=== PATIENT | male | born 1935 | race Caucasian/White ===

== ENCOUNTER → 2020-02-16 | Outpatient (CLI) | payer OTHER ==
[~2020-02-16] MED LIST: ASPI325 PO; ASPI81CH; ASPI81CH PO; Allergy Medicat25 MG; B Complex1 EAC2 PO; DAILY MULTIVIT1 EAC2 PO; HYDACE5 PO; LEVOTHYROXINE; LEVSOD175 PO; NITR100CA PO; OMEP20ER PO; PRED10 PO; SIMV10; SIMV10 PO; Synthroid112 MCG PO; TRAZ100 PO; UBID100 PO; WARF2 PO; WARF3
== END ==
LOC: PLD 07:53 → LAB SHORT 07:53
DX: L81.4 Other melanin hyperpigmentation (principal)
CPT/HCPCS: 88305

== ENCOUNTER → 2020-04-03 | Outpatient (CLI) | payer OTHER | LOC: LAB 20:12 → LAB SHORT 20:12 | DX: L08.9 Local infection of the skin and subcutaneous tissue, unspecified (principal) | CPT/HCPCS: 87070; 87205 ==

== ENCOUNTER 2020-06-11 17:44 | Emergency (ER) | payer OTHER ==
[~2020-06-11] VITALS: Ht 172.7 cm; Wt 88.5 kg
[2020-06-11 18:27] LABS: BASOPHILS ABSOLUTE AUTO 0.04 K/mm3 (0.00-0.23); BASOPHILS PERCENT AUTO 1 % (0-2); EOSINOPHILS PERCENT AUTO 3 % (0-6); Hematocrit 40.9 % (37.0-53.0); Hemoglobin 13.3 g/dL (13.5-17.5); IMMATURE GRAN ABSOLUTE AUTO 0.03 K/mm3 (0.00-0.10); IMMATURE GRAN PERCENT AUTO 0 % (0-1); LYMPHOCYTES ABSOLUTE AUTO 1.19 K/mm3 (0.84-5.20); LYMPHOCYTES PERCENT AUTO 16 % (21-46); MONOCYTES ABSOLUTE AUTO 0.65 K/mm3 (0.16-1.47); MONOCYTES PERCENT AUTO 9 % (4-13); Mean Corpuscular HGB 29.1 pg (26.0-34.0); Mean Corpuscular HGB Conc 32.5 g/dL (31.5-36.5); Mean Corpuscular Volume 90 fL (80-100); Mean Platelet Volume 10.1 fL (9.1-12.4); NEUTROPHILS ABSOLUTE AUTO 5.44 K/mm3 (1.96-9.15); NEUTROPHILS PERCENT AUTO 72 % (41-73); Platelet Count 288 K/mm3 (150-400); RDW Coefficient Variation 12.7 % (11.7-14.2); RDW Standard Deviation 41.9 fL (35.1-46.3); Red Blood Cell Count 4.57 M/mm3 (4.30-5.90); White Blood Cell Count 7.55 K/mm3 (4.00-11.30)
[2020-06-11 18:47] LABS: Alanine Aminotransfer (ALT/SGP 31 U/L (12-78); Albumin/Globulin Ratio 1.2 (0.8-1.8); Alk Phos 100 U/L (50-136); Anion Gap 6 mmol/L (6-16); Aspartate Aminotrans (AST/SGOT 33 U/L (12-37); Bilirubin, Total 0.6 mg/dL (0.1-1.0); Blood Urea Nitrogen 18 mg/dL (8-24); Bun/Creatinine Ratio 22.1 (12.0-20.0); CO2, Blood 26 mmol/L (21-32); Calcium, Blood 9.3 mg/dL (8.5-10.1); Chloride, Blood 107 mmol/L (98-108); Creatinine, Blood 0.81 mg/dL (0.60-1.20); Globulin, Blood 3.2 g/dL (2.2-4.0); Glomerular Filtration Rate >60 (60-); Glucose, Blood 94 mg/dL (70-99); Potassium, Blood 3.9 mmol/L (3.5-5.5); Sodium, Blood 139 mmol/L (136-145); Total Protein, Blood 7.2 g/dL (6.4-8.2); Troponin I <0.015 ng/mL (0.000-0.040)
== END 2020-06-11 19:51 | disposition home or self-care (01) ==
LOC: ER 17:44
PROVIDERS: Physician Assistant
DX: R00.2 Palpitations (principal); Z88.2 Allergy status to sulfonamides; Z79.01 Long term (current) use of anticoagulants; Z79.82 Long term (current) use of aspirin; Z87.891 Personal history of nicotine dependence
CPT/HCPCS: 71046; 80053; 83880; 84484; 85025; 93005; 93010; 99285-25

== ENCOUNTER 2020-10-13 17:17 | Observation (INO) | payer OTHER ==
[~2020-10-13] VITALS: Ht 172.7 cm; Wt 90.7 kg
[~2020-10-13 17:17] MED LIST changes: -ASPI81CH PO; -Allergy Medicat25 MG; -B Complex1 EAC2 PO; -Synthroid112 MCG PO; -UBID100 PO
[2020-10-13 17:47] LABS: BASOPHILS ABSOLUTE AUTO 0.03 K/mm3 (0.00-0.23); BASOPHILS PERCENT AUTO 0 % (0-2); EOSINOPHILS ABSOLUTE AUTO 0.04 K/mm3 (0.00-0.68); EOSINOPHILS PERCENT AUTO 0 % (0-6); Hemoglobin 12.7 g/dL (13.5-17.5); IMMATURE GRAN ABSOLUTE AUTO 0.13 K/mm3 (0.00-0.10); IMMATURE GRAN PERCENT AUTO 1 % (0-1); LYMPHOCYTES ABSOLUTE AUTO 0.12 K/mm3 (0.84-5.20); LYMPHOCYTES PERCENT AUTO 1 % (21-46); MONOCYTES ABSOLUTE AUTO 0.55 K/mm3 (0.16-1.47); MONOCYTES PERCENT AUTO 4 % (4-13); Mean Corpuscular HGB 30.4 pg (26.0-34.0); Mean Corpuscular HGB Conc 34.3 g/dL (31.5-36.5); Mean Corpuscular Volume 89 fL (80-100); Mean Platelet Volume 9.8 fL (9.1-12.4); NEUTROPHILS ABSOLUTE AUTO 15.04 K/mm3 (1.96-9.15); NEUTROPHILS PERCENT AUTO 94 % (41-73); Platelet Count 218 K/mm3 (150-400); RDW Standard Deviation 42.4 fL (35.1-46.3); Red Blood Cell Count 4.18 M/mm3 (4.30-5.90); White Blood Cell Count 15.91 K/mm3 (4.00-11.30)
[2020-10-13 18:01] LABS: International Normalized Ratio 2.39; Prothrombin Time Results 24.3 Sec (9.7-11.5)
[2020-10-13 18:04] LABS: Alanine Aminotransfer (ALT/SGP 31 U/L (12-78); Albumin, Blood 3.7 g/dL (3.4-5.0); Albumin/Globulin Ratio 1.2 (0.8-1.8); Alk Phos 86 U/L (50-136); Anion Gap 7 mmol/L (6-16); Aspartate Aminotrans (AST/SGOT 29 U/L (12-37); Bilirubin, Total 1.3 mg/dL (0.1-1.0); Blood Urea Nitrogen 21 mg/dL (8-24); Bun/Creatinine Ratio 22.6 (12.0-20.0); CO2, Blood 24 mmol/L (21-32); Calcium, Blood 9.1 mg/dL (8.5-10.1); Chloride, Blood 103 mmol/L (98-108); Creatinine, Blood 0.93 mg/dL (0.60-1.20); Globulin, Blood 3.2 g/dL (2.2-4.0); Glomerular Filtration Rate >60 (60-); Glucose, Blood 143 mg/dL (70-99); Potassium, Blood 4.1 mmol/L (3.5-5.5); Sodium, Blood 134 mmol/L (136-145); Total Protein, Blood 6.9 g/dL (6.4-8.2)
[2020-10-13] MEDS ORDERED: METOPROLOL SUCC25 MG PO (18:20)
[2020-10-13] MEDS ORDERED: Ketoconazole15 GM TOP (18:21)
[2020-10-13] MEDS ORDERED: HYDROCODONE-AC1 EAC7 PO (18:22)
[2020-10-13] MEDS ORDERED: EUTHYROX125 MCG PO (18:22)
[2020-10-13] MEDS ORDERED: CELEBREX200 MG PO (18:23)
[2020-10-13] MEDS ORDERED: BENADRYL25 MG PO (18:31)
[2020-10-13] MEDS ORDERED: Aspir 8181 MG PO (18:31)
[2020-10-13] MEDS ORDERED: TRAZ100 PO (18:31)
[2020-10-13] MEDS ORDERED: Coumadin2 MG PO (18:32)
[2020-10-13 19:05] LABS: Influenza A, PCR NEGATIVE (NEGATIVE); Influenza B, PCR NEGATIVE (NEGATIVE); Resp Syncytial Virus, PCR NEGATIVE (NEGATIVE); SARS-Cov-2 (COVID-19) PCR, MMC NEGATIVE (NEGATIVE)
[2020-10-13 19:24] LABS: Source, Urine Catheter
[2020-10-13 19:35] LABS: Bilirubin, Urine Neg (Neg); Blood, Urine 5+ (Neg); Color, Urine Yellow (P-Yellow); Glucose Qualitative, Urine Neg (Neg); Ketones, Urine 1+ (Neg); Leukocyte Esterase, Urine 1+ (Neg); Nitrite, Urine Neg (Neg); Protein, Urine 1+ (Neg); Specific Gravity, Urine 1.015 (1.003-1.022); Urobilinogen, Urine NORM (Normal)
[2020-10-13 19:43] LABS: Appearance, Urine Hazy (Clear)
[2020-10-13 19:44] LABS: Red Blood Cells, Urine 50-100 /hpf (0-2)
[2020-10-13 19:45] LABS: Bacteria Few /hpf; Mucus Light (0-Heavy); Squamous Epithelial Cells Few /hpf (Few)
[2020-10-13] MEDS ORDERED: BICALUTAMIDE PO (20:05)
[2020-10-13] MEDS ORDERED: FEROSUL325 M1 PO (20:06)
[2020-10-13] MEDS ORDERED: Vitamin B Comple1 EA PO (20:07)
[2020-10-13] MEDS ORDERED: ASCO500 PO (20:08)
[2020-10-13] MEDS ORDERED: CO Q10100 MG PO (20:09)
[2020-10-13] MEDS ORDERED: PRESERVISION A1 EAC1 PO (21:17)
[2020-10-13] MEDS ORDERED: CALCIUM 600 MG1 EA11 PO (21:17)
[2020-10-13] MEDS ORDERED: VITAMIN D5000 UNIT PO (21:19)
[2020-10-13] MEDS ORDERED: VITAMIN E200 UNI1 PO (21:19)
[2020-10-14 03:47] LABS: BASOPHILS ABSOLUTE AUTO 0.02 K/mm3 (0.00-0.23); BASOPHILS PERCENT AUTO 0 % (0-2); EOSINOPHILS ABSOLUTE AUTO 0.31 K/mm3 (0.00-0.68); EOSINOPHILS PERCENT AUTO 3 % (0-6); Hematocrit 33.2 % (37.0-53.0); Hemoglobin 11.3 g/dL (13.5-17.5); IMMATURE GRAN ABSOLUTE AUTO 0.09 K/mm3 (0.00-0.10); IMMATURE GRAN PERCENT AUTO 1 % (0-1); LYMPHOCYTES ABSOLUTE AUTO 0.15 K/mm3 (0.84-5.20); LYMPHOCYTES PERCENT AUTO 1 % (21-46); MONOCYTES ABSOLUTE AUTO 0.41 K/mm3 (0.16-1.47); MONOCYTES PERCENT AUTO 4 % (4-13); Mean Corpuscular HGB 30.4 pg (26.0-34.0); Mean Corpuscular Volume 89 fL (80-100); Mean Platelet Volume 10.4 fL (9.1-12.4); NEUTROPHILS ABSOLUTE AUTO 10.16 K/mm3 (1.96-9.15); NEUTROPHILS PERCENT AUTO 91 % (41-73); Platelet Count 184 K/mm3 (150-400); RDW Coefficient Variation 13.1 % (11.7-14.2); RDW Standard Deviation 42.9 fL (35.1-46.3); Red Blood Cell Count 3.72 M/mm3 (4.30-5.90); White Blood Cell Count 11.14 K/mm3 (4.00-11.30)
[2020-10-14 04:07] LABS: International Normalized Ratio 2.6; Prothrombin Time Results 26.4 Sec (9.7-11.5)
[2020-10-14 04:19] LABS: Anion Gap 5 mmol/L (6-16); Blood Urea Nitrogen 20 mg/dL (8-24); CO2, Blood 27 mmol/L (21-32); Calcium, Blood 8.3 mg/dL (8.5-10.1); Chloride, Blood 105 mmol/L (98-108); Creatinine, Blood 0.91 mg/dL (0.60-1.20); Glomerular Filtration Rate >60 (60-); Glucose, Blood 115 mg/dL (70-99); Potassium, Blood 3.7 mmol/L (3.5-5.5); Sodium, Blood 137 mmol/L (136-145)
--- NOTE | 2020-10-14 06:11 | NUR ---
SHIFT SUMMARY PT IS ALERT AND ORIENTED. DENIES PAIN AND SOB. PT CAME IN VIA STRETCHER FROM ED AT 0100. AMBULATED FROM [facility] TO BED AND TOLERATED WELL. MENTIONED HE SUFFERED FROM CHRONIC VERTIGO. USES URINAL WHILE DANGLING ON THE SIDE OF BED. VITALS HAVE BEEN STABLE AND IS ON ROOM AIR.
--- NOTE | 2020-10-14 10:05 | NUR ---
PT ALERT AND ORIENTED X4. SLEEPING IN BED THIS AM. VITAL SIGNS STABLE. ON ROOM AIR SATING ABOVE 92%. TELE SHOWING SR WITH HR 80'S. DENIES ANY CHEST PAIN. COMPLAINS OF SOME MINIMAL CHRONIC NECK AND BACK PAIN. DID NOT WANT ANY PAIN RELIEVERS. LUNG SOUNDING CLEAR. USING URINAL AT BEDSIDE. MEDS TAKEN WITH YOGURT. WILL CONTINUE TO MONITOR.
[2020-10-14] MEDS ORDERED: CEFD300 PO (14:52)
--- NOTE | 2020-10-14 15:30 | NUR ---
DISCHARGE: PT ALERT AND ORIENTED X4. ON ROOM AIR ATING ABOVE 92%. TELE SHOWING SINUS WITH HR 80-90'S. VITAL SIGNS STABLE. ORTHOSTATIC BP STABLE. PT INDEPENDENT AND STEADY ON FEET WHEN WALKING. COMPLAINS OF SOME CHRONIC NECK AND BACK PAIN. MEDICATED PER EMAR AND HOME MEDICATION. USING URINAL AT BEDSIDE. 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 DISCHARGE INSTRUCTIONS REVIEWED, QUESTIONS ANSWERED AND PRESCRIPTION CALLED IN TO [facility]. IV'S TAKEN OUT PER PROTOCOL. TAKEN OUT TO CAR VIA WHEELCHAIR.
== END 2020-10-14 15:28 | disposition home or self-care (01) ==
LOC: ER 17:17 → ERHOLD 17:18 → PCU 17:18 → EDBEDREQ 23:15 → EDBEDREQTM 23:15 → EDBEDREQSVC 23:15 → ER 23:17 → SURS 23:17 → PCU 23:22 → ERHOLD 23:22 → PCU 23:22 → ER 23:22 → PCU 10-14 01:01 → ERHOLD 10-14 01:01 → PCU 10-14 12:06
PROVIDERS: Physician Assistant; ADMIT Family Medicine
DX: D72.829 Elevated white blood cell count, unspecified (principal); I95.9 Hypotension, unspecified; D64.9 Anemia, unspecified; E87.1 Hypo-osmolality and hyponatremia; I71.2 Thoracic aortic aneurysm, without rupture; E03.9 Hypothyroidism, unspecified; K21.9 Gastro-esophageal reflux disease without esophagitis; N20.0 Calculus of kidney; K44.9 Diaphragmatic hernia without obstruction or gangrene; Z87.891 Personal history of nicotine dependence; Z85.46 Personal history of malignant neoplasm of prostate; Z95.2 Presence of prosthetic heart valve; Z79.01 Long term (current) use of anticoagulants; Z79.82 Long term (current) use of aspirin; Z79.899 Other long term (current) drug therapy; Z20.822 Contact with and (suspected) exposure to COVID-19
CPT/HCPCS: 0241U; 36415; 71045; 71275; 74175; 80048; 80053; 81001; 83605; 85025; 85610; 85730; 87040; 87086; 93005; 93010; 96361; 96365-59; 99285-25; A9270; G0378; J0696; J7030; J7120; Q9967

== ENCOUNTER 2021-07-18 13:45 | Emergency (ER) | payer OTHER ==
[~2021-07-18] VITALS: Ht 172.7 cm; Wt 88.5 kg
[~2021-07-18 13:45] MED LIST changes: +ASCO500 PO; +Aspir 8181 MG PO; +BENADRYL25 MG PO; +BICALUTAMIDE PO; +CALCIUM 600 MG1 EA11 PO; +CEFD300 PO; +CELEBREX200 MG PO; +CO Q10100 MG PO; +Coumadin2 MG PO; +EUTHYROX125 MCG PO; +FEROSUL325 M1 PO; +HYDROCODONE-AC1 EAC7 PO; +Ketoconazole15 GM TOP; +METOPROLOL SUCC25 MG PO; +PRESERVISION A1 EAC1 PO; +VITAMIN D5000 UNIT PO; +VITAMIN E200 UNI1 PO; +Vitamin B Comple1 EA PO
[2021-07-18 14:49] LABS: BASOPHILS ABSOLUTE AUTO 0.06 K/mm3 (0.00-0.23); BASOPHILS PERCENT AUTO 1 % (0-2); EOSINOPHILS ABSOLUTE AUTO 0.21 K/mm3 (0.00-0.68); EOSINOPHILS PERCENT AUTO 3 % (0-6); Hematocrit 40.6 % (37.0-53.0); Hemoglobin 13.6 g/dL (13.5-17.5); IMMATURE GRAN ABSOLUTE AUTO 0.07 K/mm3 (0.00-0.10); IMMATURE GRAN PERCENT AUTO 1 % (0-1); LYMPHOCYTES ABSOLUTE AUTO 0.66 K/mm3 (0.84-5.20); LYMPHOCYTES PERCENT AUTO 8 % (21-46); MONOCYTES ABSOLUTE AUTO 0.52 K/mm3 (0.16-1.47); MONOCYTES PERCENT AUTO 7 % (4-13); Mean Corpuscular HGB 30.6 pg (26.0-34.0); Mean Corpuscular HGB Conc 33.5 g/dL (31.5-36.5); Mean Corpuscular Volume 91 fL (80-100); NEUTROPHILS ABSOLUTE AUTO 6.43 K/mm3 (1.96-9.15); NEUTROPHILS PERCENT AUTO 81 % (41-73); Platelet Count 276 K/mm3 (150-400); RDW Standard Deviation 43.6 fL (35.1-46.3); Red Blood Cell Count 4.45 M/mm3 (4.30-5.90); White Blood Cell Count 7.95 K/mm3 (4.00-11.30)
[2021-07-18 15:14] LABS: Alanine Aminotransfer (ALT/SGP 46 U/L (12-78); Albumin, Blood 3.4 g/dL (3.4-5.0); Alk Phos 99 U/L (50-136); Anion Gap 6 mmol/L (6-16); Aspartate Aminotrans (AST/SGOT 38 U/L (12-37); Bilirubin, Total 0.5 mg/dL (0.1-1.0); Blood Urea Nitrogen 18 mg/dL (8-24); Bun/Creatinine Ratio 18.1 (12.0-20.0); CO2, Blood 25 mmol/L (21-32); Calcium, Blood 9.2 mg/dL (8.5-10.1); Chloride, Blood 108 mmol/L (98-108); Globulin, Blood 3.5 g/dL (2.2-4.0); Glomerular Filtration Rate >60 (60-); Glucose, Blood 124 mg/dL (70-99); Potassium, Blood 3.8 mmol/L (3.5-5.5); Sodium, Blood 139 mmol/L (136-145); Total Protein, Blood 6.9 g/dL (6.4-8.2); Troponin I <0.015 ng/mL (0.000-0.040)
[2021-07-18 15:19] LABS: International Normalized Ratio 2.55; Prothrombin Time Results 25.2 Sec (9.7-11.5)
[2021-07-18 17:39] LABS: Source, Urine Voided
[2021-07-18 17:46] LABS: Appearance, Urine Clear (Clear); Bilirubin, Urine Neg (Neg); Blood, Urine 1+ (Neg); Color, Urine Yellow (P-Yellow); Glucose Qualitative, Urine Neg (Neg); Ketones, Urine Neg (Neg); Leukocyte Esterase, Urine Neg (Neg); Nitrite, Urine Neg (Neg); Protein, Urine 1+ (Neg); Specific Gravity, Urine 1.015 (1.003-1.022); Urobilinogen, Urine NORM (Normal); pH, Urine 6.5 (5.0-8.0)
[2021-07-18 17:54] LABS: Bacteria Few /hpf; Squamous Epithelial Cells Rare /hpf (Few); White Blood Cells, Urine 0-2 /hpf (0-5)
[2021-07-18 17:55] LABS: Mucus Light (0-Heavy)
== END 2021-07-18 18:46 | disposition home or self-care (01) ==
LOC: ER 13:45
PROVIDERS: Emergency Medicine; Physician Assistant
DX: R41.82 Altered mental status, unspecified (principal); R53.1 Weakness; G93.40 Encephalopathy, unspecified; Z79.899 Other long term (current) drug therapy; Z79.01 Long term (current) use of anticoagulants; Z79.82 Long term (current) use of aspirin; E03.9 Hypothyroidism, unspecified; K21.9 Gastro-esophageal reflux disease without esophagitis
CPT/HCPCS: 36415; 70450; 80053; 81001; 84484; 85025; 85610; 99284-25

== ENCOUNTER 2021-09-25 13:48 | Emergency (ER) | payer OTHER ==
[~2021-09-25] VITALS: Ht 167.6 cm; Wt 88.5 kg
[2021-09-25 14:17] LABS: BASOPHILS ABSOLUTE AUTO 0.03 K/mm3 (0.00-0.23); BASOPHILS PERCENT AUTO 0 % (0-2); EOSINOPHILS ABSOLUTE AUTO 0.09 K/mm3 (0.00-0.68); EOSINOPHILS PERCENT AUTO 1 % (0-6); Hematocrit 38.2 % (37.0-53.0); Hemoglobin 12.7 g/dL (13.5-17.5); IMMATURE GRAN ABSOLUTE AUTO 0.07 K/mm3 (0.00-0.10); IMMATURE GRAN PERCENT AUTO 1 % (0-1); LYMPHOCYTES ABSOLUTE AUTO 1.09 K/mm3 (0.84-5.20); LYMPHOCYTES PERCENT AUTO 15 % (21-46); MONOCYTES PERCENT AUTO 10 % (4-13); Mean Corpuscular HGB 30.4 pg (26.0-34.0); Mean Corpuscular HGB Conc 33.2 g/dL (31.5-36.5); Mean Corpuscular Volume 91 fL (80-100); Mean Platelet Volume 10.4 fL (9.1-12.4); NEUTROPHILS ABSOLUTE AUTO 5.16 K/mm3 (1.96-9.15); NEUTROPHILS PERCENT AUTO 72 % (41-73); Platelet Count 280 K/mm3 (150-400); RDW Standard Deviation 43.3 fL (35.1-46.3); Red Blood Cell Count 4.18 M/mm3 (4.30-5.90); White Blood Cell Count 7.14 K/mm3 (4.00-11.30)
[2021-09-25 14:38] LABS: Alanine Aminotransfer (ALT/SGP 42 U/L (12-78); Albumin, Blood 3.6 g/dL (3.4-5.0); Albumin/Globulin Ratio 1.1 (0.8-1.8); Alk Phos 110 U/L (50-136); Anion Gap 7 mmol/L (6-16); Aspartate Aminotrans (AST/SGOT 35 U/L (12-37); Bilirubin, Total 0.3 mg/dL (0.1-1.0); Blood Urea Nitrogen 26 mg/dL (8-24); Bun/Creatinine Ratio 31.6 (12.0-20.0); CO2, Blood 26 mmol/L (21-32); Calcium, Blood 8.9 mg/dL (8.5-10.1); Chloride, Blood 107 mmol/L (98-108); Creatinine, Blood 0.82 mg/dL (0.60-1.20); Globulin, Blood 3.2 g/dL (2.2-4.0); Glomerular Filtration Rate >60 (60-); Glucose, Blood 80 mg/dL (70-99); Potassium, Blood 3.7 mmol/L (3.5-5.5); Sodium, Blood 140 mmol/L (136-145); Total Protein, Blood 6.8 g/dL (6.4-8.2)
[2021-09-25 16:19] LABS: International Normalized Ratio 2.54; Prothrombin Time Results 25.1 Sec (9.7-11.5)
[2021-09-25] MEDS ORDERED: ALBU90OI INH (16:32)
== END 2021-09-25 16:58 | disposition home or self-care (01) ==
LOC: ER 13:48
PROVIDERS: Emergency Medicine
DX: J68.3 Other acute and subacute respiratory conditions due to chemicals, gases, fumes and vapors (principal); K21.9 Gastro-esophageal reflux disease without esophagitis; E03.9 Hypothyroidism, unspecified; Z79.899 Other long term (current) drug therapy
CPT/HCPCS: 36415; 71045; 80053; 84484; 85025; 85610; 93005; 93010; 94640; 99285-25

== ENCOUNTER 2021-11-09 14:39 | Emergency (ER) | payer OTHER ==
[~2021-11-09] VITALS: Ht 172.7 cm; Wt 88.5 kg
[~2021-11-09 14:39] MED LIST changes: +ALBU90OI INH
[2021-11-09 16:33] LABS: International Normalized Ratio 1.8; Prothrombin Time Results 18.2 Sec (9.7-11.5)
== END 2021-11-09 17:58 | disposition home or self-care (01) ==
LOC: ER 14:39
PROVIDERS: Emergency Medicine
DX: S01.81XA Laceration without foreign body of other part of head, initial encounter (principal); S63.501A Unspecified sprain of right wrist, initial encounter; R07.89 Other chest pain; Z87.891 Personal history of nicotine dependence; W19.XXXA Unspecified fall, initial encounter
CPT/HCPCS: 12015; 70450; 71101; 72125; 73110; 85610; 90471; 90714; 99284-25

== ENCOUNTER → 2022-01-19 | Outpatient (CLI) | payer OTHER | END | disposition home or self-care (01) | LOC: LAB SHORT 16:41 → LAB 16:41 | DX: N39.0 Urinary tract infection, site not specified (principal) | CPT/HCPCS: 87086 ==

== ENCOUNTER 2022-03-19 08:25 | Day surgery (SDC) | payer OTHER ==
[~2022-03-19] VITALS: Ht 172.7 cm; Wt 87.4 kg
[~2022-03-19 08:25] MED LIST changes: +LEVOTHYROXINE PO
[2022-03-19] MEDS ORDERED: ENOX80I (09:06)
--- NOTE | 2022-03-19 10:15 | NUR ---
03/19/22 1015 Aislinn Bills LATE ENTRY: DR MEDRANO INJECTS 10CC OF LIDOCAINE 2% WITH EPI 1:100,000 AT SURGICAL SITE.
== END 2022-03-19 11:53 | disposition home or self-care (01) ==
LOC: ORSCSDS 08:25
PROVIDERS: Orthopaedic Surgery
PROC: 01N50ZZ Release Median Nerve, Open Approach (ICD-10-PCS; principal; 2022-03-19 10:00)
DX: G56.02 Carpal tunnel syndrome, left upper limb (principal); E03.9 Hypothyroidism, unspecified; Z87.891 Personal history of nicotine dependence; Z79.899 Other long term (current) drug therapy; Z79.01 Long term (current) use of anticoagulants
CPT/HCPCS: J3010

== ENCOUNTER 2022-05-01 09:53 | Day surgery (SDC) | payer OTHER ==
[~2022-05-01] VITALS: Ht 175.3 cm; Wt 83.3 kg
[~2022-05-01 09:53] MED LIST changes: +ENOX80I
== END 2022-05-01 12:45 | disposition home or self-care (01) ==
LOC: ORSCSDS 09:53
PROVIDERS: Internal Medicine Gastroenterology
PROC: 0DJD8ZZ Inspection of Lower Intestinal Tract, Via Natural or Artificial Opening Endoscopic (ICD-10-PCS; principal; 2022-05-01 11:15)
DX: K62.5 Hemorrhage of anus and rectum (principal); K64.4 Residual hemorrhoidal skin tags; K64.8 Other hemorrhoids; K57.30 Diverticulosis of large intestine without perforation or abscess without bleeding; K59.00 Constipation, unspecified; E03.9 Hypothyroidism, unspecified; G47.33 Obstructive sleep apnea (adult) (pediatric); I10 Essential (primary) hypertension; I48.91 Unspecified atrial fibrillation; E11.9 Type 2 diabetes mellitus without complications; Z79.01 Long term (current) use of anticoagulants; Z79.899 Other long term (current) drug therapy
CPT/HCPCS: J2704; J7120

== ENCOUNTER 2022-08-22 08:26 | Day surgery (SDC) | payer OTHER ==
[~2022-08-22] VITALS: Ht 167.6 cm; Wt 84.7 kg
[~2022-08-22 08:26] MED LIST changes: +ASPI81CH PO; +C COMPLEX1000 M1 PO; +CELE200 PO; +Colace100 MG PO; +HYDACE10B PO; +IRON PLUS PO; +Jantoven2 MG PO; +LEVSOD100 PO; +MAGNESIUM PO; +MULVITA PO; +VITAMIN D310 MC4 PO
[2022-08-22] MEDS ORDERED: ENOX80I SC (08:42)
[2022-08-22 09:38] LABS: International Normalized Ratio 1.14; Prothrombin Time Results 11.9 Sec (9.7-11.5)
--- NOTE | 2022-08-22 13:03 | NUR ---
TOOK OVER PATIENT CARE AFTER REPORT WAS RECEIVED.
--- NOTE | 2022-08-22 13:47 | NUR ---
Patient up to Ambulate independently. Gait steady. Discharge instructions reviewed with patient. Patient verbalizes understanding. Copy given to patient to take home. History, Chart, Medications and Allergies reviewed before start of procedure.Patient States Post-Procedure ride home has been arranged. Discharged via wheelchair to private car for ride home.
== END 2022-08-22 13:50 | disposition home or self-care (01) ==
LOC: ORSCMMR 08:26 → ORD 09:30 → ORSCMMR 09:30
PROVIDERS: Surgery
PROC: 3E0M45Z Introduction of Adhesion Barrier into Peritoneal Cavity, Percutaneous Endoscopic Approach (ICD-10-PCS; principal; 2022-08-22 09:30)
PROC: 0YUA4JZ Supplement Bilateral Inguinal Region with Synthetic Substitute, Percutaneous Endoscopic Approach (ICD-10-PCS; principal; 2022-08-22 09:30)
PROC: 8E0W4CZ Robotic Assisted Procedure of Trunk Region, Percutaneous Endoscopic Approach (ICD-10-PCS; principal; 2022-08-22 09:30)
DX: K40.20 Bilateral inguinal hernia, without obstruction or gangrene, not specified as recurrent (principal); G47.33 Obstructive sleep apnea (adult) (pediatric); Z87.891 Personal history of nicotine dependence; E03.9 Hypothyroidism, unspecified; Z79.899 Other long term (current) drug therapy; R42 Dizziness and giddiness; I48.91 Unspecified atrial fibrillation; Z79.01 Long term (current) use of anticoagulants
CPT/HCPCS: 49650; S2900; 85610; A9270; C1781; J0690; J1100; J2370; J2405; J2704; J2795; J3010; J7120

== ENCOUNTER 2022-08-27 07:39 | Inpatient (IN) | payer OTHER ==
[~2022-08-27] VITALS: Ht 170.2 cm; Wt 86.2 kg
[~2022-08-27 07:39] MED LIST changes: +ENOX80I SC
[2022-08-27 08:39] LABS: BASOPHILS ABSOLUTE AUTO 0.03 K/mm3 (0.00-0.23); BASOPHILS PERCENT AUTO 0 % (0-2); EOSINOPHILS PERCENT AUTO 0 % (0-6); Hematocrit 26.7 % (37.0-53.0); Hemoglobin 8.9 g/dL (13.5-17.5); IMMATURE GRAN ABSOLUTE AUTO 0.41 K/mm3 (0.00-0.10); IMMATURE GRAN PERCENT AUTO 2 % (0-1); LYMPHOCYTES ABSOLUTE AUTO 0.53 K/mm3 (0.84-5.20); LYMPHOCYTES PERCENT AUTO 3 % (21-46); MONOCYTES ABSOLUTE AUTO 1.19 K/mm3 (0.16-1.47); MONOCYTES PERCENT AUTO 7 % (4-13); Mean Corpuscular HGB 30.3 pg (26.0-34.0); Mean Corpuscular HGB Conc 33.3 g/dL (31.5-36.5); Mean Corpuscular Volume 91 fL (80-100); Mean Platelet Volume 10.6 fL (9.1-12.4); NEUTROPHILS ABSOLUTE AUTO 16.16 K/mm3 (1.96-9.15); NEUTROPHILS PERCENT AUTO 88 % (41-73); Platelet Count 314 K/mm3 (150-400); RDW Coefficient Variation 13.5 % (11.7-14.2); Red Blood Cell Count 2.94 M/mm3 (4.30-5.90); White Blood Cell Count 18.32 K/mm3 (4.00-11.30)
[2022-08-27 08:58] LABS: Albumin, Blood 3.2 g/dL (3.4-5.0); Bilirubin, Direct 0.1 mg/dL (0.0-0.3); Bilirubin, Indirect 0.5 mg/dL (0.1-0.7); Bilirubin, Total 0.6 mg/dL (0.1-1.0); Bun/Creatinine Ratio 16.8 (12.0-20.0); Calcium, Blood 9.1 mg/dL (8.5-10.1); Creatinine, Blood 2.02 mg/dL (0.60-1.20); Globulin, Blood 3.3 g/dL (2.2-4.0); Magnesium, Blood 2.6 mg/dL (1.6-2.4); Potassium, Blood 4.1 mmol/L (3.5-5.5); Total Protein, Blood 6.5 g/dL (6.4-8.2)
[2022-08-27 10:14] LABS: Influenza A, PCR NEGATIVE (NEGATIVE); Influenza B, PCR NEGATIVE (NEGATIVE); Resp Syncytial Virus, PCR NEGATIVE (NEGATIVE); SARS-Cov-2 (COVID-19) PCR, MMC NEGATIVE (NEGATIVE)
[2022-08-27 11:30] LABS: Source, Urine Foley catheter
[2022-08-27 11:41] LABS: Blood, Urine 5+ (Neg); Glucose Qualitative, Urine Neg (Neg); Ketones, Urine Neg (Neg); Leukocyte Esterase, Urine Neg (Neg); Nitrite, Urine Pos (Neg); Protein, Urine 3+ (Neg); Urobilinogen, Urine 2+ (Normal)
[2022-08-27 11:45] LABS: International Normalized Ratio 1.22; Prothrombin Time Results 12.6 Sec (9.7-11.5)
[2022-08-27 11:53] LABS: Amorphous Light (0-Heavy); Appearance, Urine Hazy (Clear); Bacteria Few /hpf; Bilirubin, Urine 3+ (Neg); Color, Urine Orange (P-Yellow); Mucus Light (0-Heavy); Squamous Epithelial Cells Rare /hpf (Few); White Blood Cells, Urine 0-2 /hpf (0-5)
[2022-08-27 11:54] LABS: Hyaline Casts 0-2 /lpf (0-2)
[2022-08-27 15:27] LABS: Hematocrit 23.7 % (37.0-53.0); Hemoglobin 7.8 g/dL (13.5-17.5)
--- NOTE | 2022-08-27 17:17 | NUR ---
ARRIVAL TO ICU/SHIFT SUMMARY PT ARRIVES TO ICU AT 1509 FOR ABD BLEEDING POST HERNIA REPAIR ON 08/22/22. PER ER REPORT, PT c INCREASING ABD PAIN AND CONSTIPATION c URINARY RETENTION. SEEN IN URGENT CARE AND JOHNSON PLACED. CHANGED IN ER. 2 UNITS OF PRBC AND 1 UNIT PLASMA TRANSFUSED IN ER. PT ARRIVES A&O X3. FOLLOWS COMMANDS. C/O ABD PAIN, 10/10. ABD DISTENDED, TENDER c SLIGHT PALPATION. HYPOACTIVE BT. SURGICAL SITES WNL. PT PALE, COOL. CAP REFILL <3 SEC. LUNGS CLEAR, ON RA. ST ON MONITOR, RATE 90-100'S. LR STARTED, TRANSFUSED 1 UNIT OF PLASMA AND 2 UNIT OF PRBC (4 TOTAL). JOHNSON DRAINING RED URINE, CURRENTLY IRRIGATING POST BLADDER SCAN OF 600ML. PLAN TO CONTINUE TO TRANSFUSE, 6 UNITS ORDERED, AND TREND H&H. ICE CHIPS AND SMALL SIPS OK BY DR FRAUSTO. WILL CONTINUE TO MONITOR UNTIL REPORT TO ONCOMING NURSE.
--- NOTE | 2022-08-27 18:01 | NUR ---
pt still having some spasms and pain. stuggling with comfort. plan is to plan is to give blod products and hydrate. pt no porducing much uring bladded scan showed volume flushed without much return may be swelling. Witnessed conversation with hopitalist the patient and daughters. Pt feels he is suffering. He would not want cpr or intubation. He is ok with resonabale treatment for his condition and if he has dysrythmias. Will take pressors and blood just no cpr or intubation will complete polst. Will continue to monitor pain.
--- NOTE | 2022-08-27 23:03 | NUR ---
ASSEMD CARE AT 1900 PT LAYING IN BED AT SHIFT CHANGE WITH HIS PAIN 10/10. HE WAS VERY UNCOMFORTABLE AND CHALLENGING TO CONTROL HIS PAIN IN HIS ABD; EVEN AFTER THE FENTANYL PUSHES AVAILABLE, THIS WAS NOT BRINGING THE PAIN DOWN. CALL MADE TO DR TOLBERT WHO PROVIDED ORDER FOR DILAUDID 1MG Q6HRS PRN. AFTER GIVING DILAUDID, PT PAIN MORE MANAGABLE AT A 4/10 AND IS NOW MAINTAINED WITH FENTANYL PUSHES AND PRN NORCO Q4HR. PT IS A/OX4 AND BETTER ABLE TO MAKE HIS NEEDS KNOW WHEN PAIN IN CONTROLLED. SPO2 >95% ON RA. AFEBRILE. HR 110-130'S. SBP 60-70'S W/ MAP 55-70; LEVOPHED INFUSING AT 12MCG/MIN THROUGH PIV, PT DOES NOT WANT A CENTRAL LINE PLACED. ABD IS VERY PAINFUL TO LIGHT TOUCH, IS FIRM, AND BRUISED. SURGICAL SITES SHOW NO SIGNS OF INFECTION, AND CLOSED. NO NAUSEA. JOHNSON IN PLACE WITH VERY LITTLE OUTPUT. CRANBERRY COLOR. PIV ACCESS CHALLENGING. RT AC OCCLUDED AND NOT FLUSHING; IV REMOVED. NEW IV PLACED IN LT AC FOLLOWED BY INFULTRATING ABOUT 30 MIN LATER; IV PULLED. ANOTHER IV PLACED IN RT FOREARM, PRBC'S INFUSING THERE. LT FOREARM IV INFUSING LEVOPHED. LAST UNIT OF BLOOD INFUSING NOW (12/23). PLAN FOR H&H AFTER THIS UNIT IS DONE INFUSING. SEE SHIFT ASSESSMENT FOR FULL ASSESSMENT. MANY FAMILY MEMBERS AND MANY FRIENDS HERE (20-30 PEOPLE). LIMITS MADE TO ONLY HAVE 5 FAMILY MEMEBERS IN THE ROOM AT A TIME WITH THE OVERFLOW WAITING IN THE ICU WAITING ROOM.
[2022-08-28 02:04] LABS: BASOPHILS ABSOLUTE AUTO 0.09 K/mm3 (0.00-0.23); BASOPHILS PERCENT AUTO 0 % (0-2); EOSINOPHILS ABSOLUTE AUTO 0.01 K/mm3 (0.00-0.68); EOSINOPHILS PERCENT AUTO 0 % (0-6); Hematocrit 33.5 % (37.0-53.0); Hemoglobin 11.5 g/dL (13.5-17.5); IMMATURE GRAN ABSOLUTE AUTO 0.98 K/mm3 (0.00-0.10); IMMATURE GRAN PERCENT AUTO 4 % (0-1); LYMPHOCYTES ABSOLUTE AUTO 1.54 K/mm3 (0.84-5.20); LYMPHOCYTES PERCENT AUTO 6 % (21-46); MONOCYTES ABSOLUTE AUTO 2.96 K/mm3 (0.16-1.47); MONOCYTES PERCENT AUTO 12 % (4-13); Mean Corpuscular HGB 29.3 pg (26.0-34.0); Mean Corpuscular HGB Conc 34.3 g/dL (31.5-36.5); Mean Corpuscular Volume 86 fL (80-100); Mean Platelet Volume 10.6 fL (9.1-12.4); NEUTROPHILS ABSOLUTE AUTO 19.28 K/mm3 (1.96-9.15); NEUTROPHILS PERCENT AUTO 78 % (41-73); NRBC ABSOLUTE 0.04 K/mm3 (0.00-0.02); NRBC Auto 0.2 /100 WBC (0.0-0.2); Platelet Count 157 K/mm3 (150-400); RDW Coefficient Variation 14.8 % (11.7-14.2); Red Blood Cell Count 3.92 M/mm3 (4.30-5.90); White Blood Cell Count 24.86 K/mm3 (4.00-11.30)
[2022-08-28 03:33] LABS: Albumin, Blood 2.7 g/dL (3.4-5.0); Albumin/Globulin Ratio 0.8 (0.8-1.8); Bilirubin, Total 1.5 mg/dL (0.1-1.0); Bun/Creatinine Ratio 17.3 (12.0-20.0); Calcium, Blood 8.3 mg/dL (8.5-10.1); Creatinine, Blood 3.18 mg/dL (0.60-1.20); Globulin, Blood 3.3 g/dL (2.2-4.0); Magnesium, Blood 2.6 mg/dL (1.6-2.4); Potassium, Blood 4.6 mmol/L (3.5-5.5)
[2022-08-28 03:59] LABS: International Normalized Ratio 1.37; Prothrombin Time Results 14.1 Sec (9.7-11.5)
--- NOTE | 2022-08-28 04:30 | NUR ---
UPDATE PT CONT TO HAVE PAIN THAT IS HARD TO MANAGE. MANY FAMILY MEMEBERS AT BEDSIDE AND WHEN DISCUSSING GOALS OF CARE; THE FAMILY AND PATIENT HAVE DECIDED TO GO COMFORT CARE. THEY EXPRESSED UNDERSTANDING THAT HIS CONDITION WAS NOT IMPROVING AND THAT HIS PAIN CONT TO GET WORSE. CALL MADE TO DR HAIRSTON WHO IS PROVIDING COMFORT CARE ORDERS.
--- NOTE | 2022-08-28 05:43 | NUR ---
END OF SHIFT SUMMARY PT IS NOW COMFORT CARE. ALL FAMILY IS AT BEDSIDE. PAIN IS BETTER CONTROLLED BUT HE IS LESS ALERT AND CHALLENGING TO AROUSE. ON 2L O2 FOR COMFORT. WILL REPORT TO AM RN WHEN AVAILABLE.
--- NOTE | 2022-08-28 06:39 | NUR ---
JUAN A PT AT 0615; VARIFIED WITH JJ YBARRA. ALL FAMILY PRESENT. PT OLDEST SON STATED THAT THEY WILL USE [employer] [facility] AND PROVIDED HIS NUMBER [phone]. ALL BELONGINGS WENT HOME WITH FAMILY.
== END 2022-08-28 06:15 | DRG 394 ==
LOC: ER 07:39 → ICUW 11:18 → ICUE 15:00
PROVIDERS: Student in an Organized Health Care Education/Training Program; ADMIT Surgery
PROC: 30233N1 Transfusion of Nonautologous Red Blood Cells into Peripheral Vein, Percutaneous Approach (ICD-10-PCS; principal; 2022-08-27)
PROC: 30233K1 Transfusion of Nonautologous Frozen Plasma into Peripheral Vein, Percutaneous Approach (ICD-10-PCS; 2022-08-27)
PROC: 30233L1 Transfusion of Nonautologous Fresh Plasma into Peripheral Vein, Percutaneous Approach (ICD-10-PCS; 2022-08-27)
PROC: 3E033XZ Introduction of Vasopressor into Peripheral Vein, Percutaneous Approach (ICD-10-PCS; 2022-08-27)
DX: K66.1 Hemoperitoneum (principal); D62 Acute posthemorrhagic anemia; N17.9 Acute kidney failure, unspecified; E87.20 Acidosis, unspecified; R57.8 Other shock; Z20.822 Contact with and (suspected) exposure to COVID-19; Z28.21 Immunization not carried out because of patient refusal; I48.0 Paroxysmal atrial fibrillation; K44.9 Diaphragmatic hernia without obstruction or gangrene; I71.21 Aneurysm of the ascending aorta, without rupture; G47.33 Obstructive sleep apnea (adult) (pediatric); I25.10 Atherosclerotic heart disease of native coronary artery without angina pectoris; E03.9 Hypothyroidism, unspecified; M19.90 Unspecified osteoarthritis, unspecified site; H35.30 Unspecified macular degeneration; K21.9 Gastro-esophageal reflux disease without esophagitis; G47.00 Insomnia, unspecified; I67.9 Cerebrovascular disease, unspecified; E78.5 Hyperlipidemia, unspecified; T45.515A Adverse effect of anticoagulants, initial encounter; Z85.46 Personal history of malignant neoplasm of prostate; Z87.891 Personal history of nicotine dependence; Z87.442 Personal history of urinary calculi; Z95.4 Presence of other heart-valve replacement; Z90.79 Acquired absence of other genital organ(s); Z98.890 Other specified postprocedural states; Z79.01 Long term (current) use of anticoagulants; Z79.82 Long term (current) use of aspirin; Z79.890 Hormone replacement therapy; Z79.899 Other long term (current) drug therapy
CPT/HCPCS: 0241U; 36415; 36430; 51702; 51798; 74177; 80048; 80053; 80076; 81001; 83605; 83735; 84145; 85014; 85018; 85025; 85610; 85730; 86850; 86900; 86901; 86923; 87040; 87086; 93005; 93010; 96361-59; 96365-59; 96375-59; 96376-59; 99285-25; A9270; C1751; J1170; J2060; J2405; J2543; J3010; J7030; J7050; J7060; J7120; P9016; P9059; Q9967